=== PATIENT | female | born 1960 | race Caucasian/White ===

== ENCOUNTER 2016-11-22 13:36 | Emergency (ER) | payer OTHER ==
[~2016-11-22] VITALS: Ht 165.1 cm; Wt 71.2 kg
[2016-11-22 15:05] LABS: ABSOLUTE BASOPHIL COUNT 0 /CUMM (0.0-0.2); ABSOLUTE EOSINOPHIL COUNT 0 /CUMM (0.0-0.7); ABSOLUTE GRANULOCYTE CT 3.2 /CUMM (1.4-6.5); ABSOLUTE LYMPH COUNT 0.8 /CUMM (1.2-3.4); ABSOLUTE MONOCYTE COUNT 0.3 /CUMM (0.10-0.60); BASOPHIL % 0.2 % (0.0-2.0); EOSINOPHIL % 0.1 % (0-5); GRANULOCYTE % 73.4 % (42.2-75.2); HEMATOCRIT 43.3 % (37-47); MEAN CORPUSCULAR HGB 29.5 PG (27.0-31.0); MEAN CORPUSCULAR HGB CONC 34.3 G/DL (33.0-37.0); MEAN CORPUSCULAR VOLUME 85.8 FL (81.0-99.0); MEAN PLATELET VOLUME 8.2 FL (7.4-10.4); PLATELET COUNT 210 /CUMM (130-400); RBC DISTRIBUTION WIDTH 12.4 % (11.5-14.5); RED BLOOD CELL CT 5.05 /CUMM (4.20-5.40); WHITE BLOOD CELL COUNT 4.4 /CUMM (4.8-10.8)
--- NOTE | 2016-11-22 16:03 | ED GI/GU/ABDOMINAL COMPLAINT ---
History of Present Illness General Chief Complaint: Nausea, Vomiting, Diarrhea Stated Complaint: PT STATES"I THINK IM DEHYDRATED" Source: patient Exam Limitations: no limitations Vital Signs & Intake/Output Vital Signs & Intake/Output Vital Signs Date Time Temp Pulse Resp B/P Pulse O2 O2 Flow FiO2 Ox Delivery Rate 11/22 1629 99.2 98 16 139/83 99 Room Air 11/22 1349 97.4 123 20 137/93 100 Room Air Allergies Coded Allergies: No Known Allergies (11/22/16) Triage Note: ABDOMINAL PAIN AND CRAMPS SINCE THURSDAY. C/O DIZZINESS AND DRY MOUTH. PT STATES DIARRHEA ALL DAY THURSDAY. HAD SMALL BM THIS AM. PT DENIES VOMITING Triage Nurses Notes Reviewed? yes ? n Is pt currently ? No HPI: 56-year-old female here with complaints of feeling dehydrated after having multiple episodes of diarrhea 3 days ago. She had mild abdominal cramping is mild epigastric abdominal discomfort. She states she has had no appetite, she denies any nausea or vomiting but states that she hasn't been eating or drinking because she feels as though she might get nauseous and vomit. She has no previous history of abdominal pain, no chills sweats or fever. No previous abdominal surgeries. She is feeling dry mouth, feeling lightheaded when she stands, decreased energy and malaise. Past History Travel History Traveled to [place] past 21 day No Medical History Any Pertinent Medical History? none Surgical History Surgical History: non-contributory Psychosocial History What is your primary language [place] Tobacco Use: Never used ETOH Use: occasional use Illicit Drug Use: denies illicit drug use Family History Hx Contributory? No Review of Systems Review of Systems Constitutional: Reports: see HPI. EENTM: Reports: no symptoms. Respiratory: Reports: no symptoms. Cardiovascular: Reports: no symptoms. GI: Reports: see HPI. Genitourinary: Reports: no symptoms. Musculoskeletal: Reports: no symptoms. Skin: Reports: no symptoms. Neurological/Psychological: Reports: no symptoms. Hematologic/Endocrine: Reports: no symptoms. Immunologic/Allergic: Reports: no symptoms. All Other Systems: Reviewed and Negative Physical Exam Physical Exam Gastrointestinal: normal bowel sounds, soft Comments: Well-developed well-nourished no apparent distress. HEENT: Atraumatic, extraocular motion intact dry mucous membranes Neck: Supple, no lymphadenopathy Back: Nontender Respiratory: No respiratory distress clear to auscultation bilateral. Heart: Tachycardic, no murmur. Abdomen: Soft, minimal tenderness in the epigastric region, no lower abdominal tenderness, negative Jacobs sign. Extremities: No edema, full range of motion Neuro: Alert and oriented x3 Psych: Mood affect normal, normal memory normal judgment. Skin: Warm and dry, no rash on exposed skin Core Measures ACS in differential dx? No Severe Sepsis Present: No Septic Shock Present: No Progress Differential Diagnosis: AAA, AMI, appendicitis, biliary colic, bowel obstruction , colon cancer, cholecystitis, diverticulitis, ectopic , endometritis, esophageal varices, gastritis, hepatitis, hernia, hemorrhoids, ischemic bowel, inflamm bowel dis, intrauterine , kidney stone, Med[place]-Dev tear, ovarian cyst, ovarian torsion, pancreatitis, PID/cervicitis, peptic ulcer, PUD/ GERD, perforated viscous, SBO, threatened AB, UTI/pyelo Plan of Care: Orders Procedure Date/time Status Saline Lock 11/22 1428 Active COMPREHENSIVE METABOLIC PANEL 11/22 1428 Complete CBC WITHOUT DIFFERENTIAL 11/22 1428 Complete Laboratory Tests 11/22/16 1452: Anion Gap 15, Estimated GFR > 60, BUN/Creatinine Ratio 28.6 H, Glucose 111 H, Calcium 9.3, Total Bilirubin 1.0, AST 47 H, ALT 69 H, Alkaline Phosphatase 141 H, Total Protein 7.2, Albumin 4.0, Globulin 3.2, Albumin/Globulin Ratio 1.3, CBC w Diff NO MAN DIFF REQ, RBC 5.05, MCV 85.8, MCH 29.5, RDW 12.4, MPV 8.2, Gran % 73.4, Lymphocytes % 19.4 L, Monocytes % 6.9, Eosinophils % 0.1, Basophils % 0.2, Absolute Granulocytes 3.2, Absolute Lymphocytes 0.8 L, Absolute Monocytes 0.3, Absolute Eosinophils 0, Absolute Basophils 0, PUBS MCHC 34.3 Initial ED EKG: none Comments: Patient noted to be tachycardic and appears to have dry mucous membranes. She is given a liter of fluid and labs were drawn. She was reevaluated, noted slightly elevated LFTs, I examined her abdomen again and she continues to be nontender in the right upper quadrant region. She is feeling better however still mildly tachycardic, elevated BUN/creatinine ratio, we'll give her second liter of fluid and reevaluate her after this is finished. Patient given a second liter of fluid and reevaluate. Heart rate 98, she is able to stand and walk and does not feel lightheaded or dizzy. She stable for discharge home and recommend following up with her primary care doctor in 2 weeks for recheck of her liver tests. She understands and agrees with plan. Departure Departure Disposition: HOME OR SELF CARE Condition: Stable Clinical Impression Primary Impression: Dehydration Secondary Impressions: Transaminitis Referrals: WILBERTO MIKE,JEN Eckert (PCP/Family) Additional Instructions: Clear liquid diet and advance as tolerated. Drink plenty of fluids. Return with worsening abdominal pain nausea vomiting or fever. Your liver tests were slightly elevated today, please follow-up with your primary care doctor in 2 weeks' time to have this rechecked. Departure Forms: Customer Survey General Discharge Information
[2016-11-22 16:29] VITALS: BP 139/83
== END 2016-11-22 16:43 ==
LOC: ERH 13:36
PROVIDERS: Physician Assistant Surgical
DX: E86.0 Dehydration (principal); R74.0 Nonspecific elevation of levels of transaminase and lactic acid dehydrogenase [LDH]